=== PATIENT | female | born 1955 | race Caucasian/White ===

== ENCOUNTER 2016-09-06 08:29 | Observation (INO) | payer SELFPAY ==
--- NOTE | ~2016-09-06 | HP ---
History And Physical [place] [id number] [facility] [place]. [address] NAME: NGOZI SCHERER : 55 STATUS : DIS Annabella PAT#: [id number] AGE: 61 ADM/REG DATE : 09/06/16 MR#: [id number] REPORT SERV DATE: 11/10/16 DICTATED BY: NATIVIDAD LOVING DATE: 09/06/16 REPORT STATUS : Draft TRANSCRIBED BY: MODEze DATE: 09/06/16 DATE OF ADMISSION: 09/06/2016 PRIMARY CARE PROVIDER: [facility]. HAND RUG BRAIDER: Previously Dr. Rakesh Machuca. PRODUCTION MACHINE SHOP SUPERVISOR: Dr. Delmy Pabon. CHIEF COMPLAINT: Chest pain with typical and atypical features. HISTORY OF PRESENT ILLNESS: This is a very pleasant 61-year-old white female with no known history of CAD, states that over the past two weeks, she has had episodic chest pain described as substernal in nature, that occurs randomly. She reports it is worse with exertion such as taking "a few steps" it becomes "sharp." She describes associated shortness of breath, nausea, diaphoresis, cold clammy sensation, and dizziness. Denies any belching. At its most intense, she rates the chest pain a 9/10. At the time of interview in the [facility], she is pain free. She states the episodes come and go, and are also described as "pulling on my chest." She denies any personal history of myocardial infarction, stroke, DVT, or pulmonary embolus. The patient denies any recent fever or chills, no palpitations, no syncopal episodes. Denies PND or orthopnea. Of note, the patient has been followed by Dr. Rakesh Machuca in the past, reportedly had an arteriogram done at [facility] in 2008, which was negative per the patient's report. She was followed by Dr. Machuca for reportedly atrial fibrillation, on atenolol and low-dose aspirin. PAST MEDICAL HISTORY: 1. Reports history of PAF, on beta-jos and aspirin. 2. IDDM. 3. Cholesterol per PCP and reportedly "fine.". 4. Depression. 5. Fibromyalgia. 6. Asthma. 7. Remote tobacco abuse. 8. Positive family history for early CAD. PAST SURGICAL HISTORY: Cholecystectomy and hemorrhoidectomy. SOCIAL HISTORY: She is with one daughter. 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 Currently unemployed, does not have an exercise routine. Quit smoking 30 years ago, prior to that was one-pack per day for 15 years. Denies alcohol or illicits. FAMILY HISTORY: Father at 67 of a heart attack. Mother with CAD and stents in her 60s, History And Physical [address] [id number] NAME: NGOZI SCHERER : 55 STATUS : DIS Annabella PAT#: [id number] AGE: 61 ADM/REG DATE : 09/06/16 MR#: [id number] REPORT SERV DATE: 11/10/16 DICTATED BY: NATIVIDAD LOVING DATE: 09/06/16 REPORT STATUS : Draft TRANSCRIBED BY: FREDIS DATE: 09/06/16 at 72. Sister with a "silent [place]," alive at 64. REVIEW OF SYSTEMS: A 14-point review of systems was performed, significant for HPI including home blood sugars of 80 to 400. Recalls most recent hemoglobin A1c of 12, records indicate 13. Otherwise a complete review of systems was obtained and negative. ALLERGIES: SULFA, NAUSEA AND VOMITING; RELAFEN, NAUSEA AND VOMITING, HEART ATTACK OR "FEELS LIKE I AM HAVING A HEART ATTACK;" PHENERGAN, SLEEPINESS AND NAUSEA. MEDICATIONS: Home medicines; aspirin 81 mg daily; atenolol 100 mg daily, last dose on 07/05/2016 at 1700 hours; Prozac 40 mg daily; hydrocodone 10/325 every 6 hours p.r.n.; NovoLog sliding scale; Levemir 15 units twice daily; and magnesium daily. PHYSICAL EXAMINATION: BLOOD PRESSURE: 129/74, PULSE: 58, RESPIRATORY RATE: 16, TEMPERATURE: 97.6, O2 saturation 99% on room air. HEIGHT: 5 feet 3 inches, WEIGHT: 130 pounds. BMI of 23. GENERAL: Cooperative, in no apparent distress. HEENT: Pupils 2 mm, sclera nonicteric. Nares patent. Moist mucous membranes. No xanthelasma. NECK: Trachea midline, no thyromegaly. No JVD. No bruits. LYMPH: No cervical lymphadenopathy. No supraclavicular lymphadenopathy. RESPIRATORY: Unlabored respirations. Breath sounds clear bilaterally to posterior auscultation. No wheezes or rhonchi. CARDIOVASCULAR: Trace bilateral ankle edema. ABDOMEN: Soft, nontender, nondistended, normal bowel sounds auscultated throughout. No organomegaly. SKIN: Warm, dry extremities. No pallor, or cyanosis. PSYCHIATRIC: Appropriate affect. Alert, oriented x3. LABORATORY DATA: Troponin is less than 0.02, second pending. Potassium 4.2, BUN 18, creatinine 0.63, glucose 85, and magnesium 2.2. WBC of 8.6, hemoglobin 14.6, hematocrit 41.2, and platelet count 332,000. EKG; sinus rhythm with occasional PVCs. Echo 08/2013: EF of 55%. MPI 04/2014: No ischemia. A cath [place] [address] Machuca at [facility]; negative per the patient's report. ASSESSMENT AND PLAN: 1. Chest pain with typical and atypical features. The patient will be observed in the CP[facility] overnight to rule out myocardial infarction with serial enzymes and serial EKGs. Beta-jos will remain on hold. N.p.o. after midnight for MPI in the morning. Resume beta-jos after stress test. The patient will be discharged home if low risk, no ischemia. If anything suggestive of ischemia, Cardiology referral will be initiated. Otherwise, the patient will be asked to follow up with her PCP in one to History And Physical [address] [id number] NAME: NGOZI SCHERER : 55 STATUS : DIS Annabella PAT#: [id number] AGE: 61 ADM/REG DATE : 09/06/16 MR#: [id number] REPORT SERV DATE: 11/10/16 DICTATED BY: NATIVIDAD LOVING DATE: 09/06/16 REPORT STATUS : Draft TRANSCRIBED BY: FREDIS DATE: 09/06/16 two weeks with all studies being sent to that office. 2. Paroxysmal atrial fibrillation per report, monitor rhythm, hold beta-jos. Resume beta-jos after MPI. 3. Insulin-dependent diabetes mellitus, check a hemoglobin A1c level 1 sliding scale correction. Diet choice was discussed. GAVIN/FREDIS Natividad Loving, MSN, DIGITAL COMMENTATOR- / [id number]
[~2016-09-06 08:29] MED LIST: ADVAIR; AFRIN15 NAS; ASAB PO; ATEN100 PO; ATEN50 PO; ATENOLOL; ATV1 PO; CIP5 PO; COMBIVENT RESPIM4 GM INH; INHALER PO; INSNOVN SC; LANTUS SC; LEVEMIR SC; LEVOTHYROXIN25 MCG PO; LORTAB10 PO; MAGNESIUM PO; MAGOX4 PO; MONODOX100 MG PO; MULTIVIT/MIN PO; NEUR300 PO; NEXIUM; NORCO1 TAB PO; NOVOLOG SC; NOVOLOG SLIDING; NOVOPEN SC; P10 PO; PR25 PO; PROTONIX PO; PROVHFA INH; PROZAC; PROZAC40 MG PO; SINGULAIR1 PO; STOOL SOFTNER OTC PO; T PO; TAGAMET 200 MG200 MG PO; ZYRTEC ALLGY10 MG PO; [UNRECOGNIZED DRUG - OTHER] PO; [UNRECOGNIZED DRUG - REMARK]
[2016-09-06 08:32] LABS: BASOPHILS 0.2 %; BASOPHILS ABSOLUTE 0.02 10/3/uL (0.0-0.16); EOSINOPHILS 1.5 %; EOSINOPHILS ABSOLUTE 0.13 10/3/uL (0.0-0.53); ER CBC TAT 0 Hrs 05 Mins; HEMATOCRIT 41.2 % (36.0-48.0); HEMOGLOBIN 14.6 g/dL (12.0-16.0); IMMATURE GRANULOCYTES 0.1 %; IMMATURE GRANULOCYTES ABSOLUTE 0.01 10/3/uL (0.0-0.11); LYMPHOCYTES 29.8 %; LYMPHOCYTES ABSOLUTE 2.55 10/3/uL (0.67-4.30); MANUAL DIFF NO %; MEAN CORPUS HGB CONC 35.4 g/dL (32.0-36.0); MEAN CORPUSCULAR HEMOGLOB 31.5 pg (26.0-34.0); MEAN CORPUSCULAR VOLUME 88.8 fL (80-100); MEAN PLATELET VOLUME 10.1 fL (9.2-13.0); MONOCYTES 7.7 %; MONOCYTES ABSOLUTE 0.66 10/3/uL (0.21-1.20); NEUTROPHILS 60.7 %; PLATELET COUNT 332 10/3/uL (150-400); RBC DISTRIBUTION WIDTH 12.5 % (12.0-16.0); RED CELL COUNT 4.64 10/6/uL (4.0-5.6); WHITE BLOOD CELLS 8.6 10/3/uL (4.5-10.5)
[2016-09-06 08:38] LABS: PARTIAL THROMBO TIME 26.5 SEC (22.5-37.2); PROTIME (NOT ORD) 13.4 SEC (12.0-14.5)
[2016-09-06 08:53] LABS: BUN (BLOOD UREA NITROGEN) 18 MG/DL (6-23); CALCIUM, SERUM 9.2 MG/DL (8.5-10.4); CHEST PAIN PROFILE TAT 0 Hrs 26 Mins; CHLORIDE, SERUM 99 MMOL/L (96-112); CO2 (CARBON DIOXIDE) 32 MMOL/L (24-34); CREATININE 0.63 MG/DL (0.55-1.02); GFR AFRICAN AMERICAN 112 ML/MIN (>=60); GFR NON AFRICAN AMERICAN 97 ML/MIN (>=60); POTASSIUM, SERUM 4.2 MMOL/L (3.5-5.3); SODIUM, SERUM 140 MMOL/L (135-148); TROPONIN I <0.02 NG/ML (<0.05)
[2016-09-06 08:54] LABS: GLUCOSE, SERUM 85 MG/DL (60-99)
[2016-09-06] MEDS ORDERED: ATEN100 PO (10:26)
[2016-09-06] MEDS ORDERED: LEVEMFLXPN SC (10:27)
[2016-09-06] MEDS ORDERED: PROZAC40 MG PO (10:28)
[2016-09-06] MEDS ORDERED: NORCO1 TAB PO (10:28)
[2016-09-06] MEDS ORDERED: ASAB PO (10:28)
[2016-09-06] MEDS ORDERED: NOVOLOG SC (10:28)
[2016-09-06] MEDS ORDERED: MAGNESIUM PO (10:29)
== END 2016-09-07 17:12 | disposition home or self-care (01) ==
LOC: ER 08:29 → CDU1 09:44
PROVIDERS: Nurse Practitioner
DX: R07.89 Other chest pain (principal); I48.0 Paroxysmal atrial fibrillation; E11.9 Type 2 diabetes mellitus without complications; M79.7 Fibromyalgia; J44.9 Chronic obstructive pulmonary disease, unspecified; E78.00 Pure hypercholesterolemia, unspecified; M06.9 Rheumatoid arthritis, unspecified; E03.9 Hypothyroidism, unspecified; F41.9 Anxiety disorder, unspecified; F32.9 Major depressive disorder, single episode, unspecified; Z79.4 Long term (current) use of insulin; Z98.51 Tubal ligation status; Z88.8 Allergy status to other drugs, medicaments and biological substances; Z87.01 Personal history of pneumonia (recurrent); Z88.2 Allergy status to sulfonamides; Z90.49 Acquired absence of other specified parts of digestive tract
CPT/HCPCS: 71010; 78452; 80048; 82962; 83036; 83735; 84484; 85025; 85610; 85730; 90686; 93005; 93017; 96374; 96375; 96376; 99285; A9270-GY; A9502; G0008; G0378; J0153; J0360; J2405

== ENCOUNTER 2016-11-03 06:15 | Emergency (ER) | payer SELFPAY ==
[2016-11-03 05:28] LABS: ASCORBIC ACID (UR NOT ORDER) NEG (NEG); BILIRUBIN, URINE NEGATIVE (NEG); ER URINALYSIS TAT 0 Hrs 00 Mins; KETONE, URINE TRACE MG/DL (NEG); LEUKOCYTE ESTERASE(NOT OR TRACE (NEG); NITRITE (URINE) NEG (NEG); WBC (NOT ORDERED) (RFLEX) 4 (0-5)
[2016-11-03 05:34] LABS: BASOPHILS 0.1 %; BASOPHILS ABSOLUTE 0.01 10/3/uL (0.0-0.16); EOSINOPHILS 0.5 %; EOSINOPHILS ABSOLUTE 0.08 10/3/uL (0.0-0.53); ER CBC TAT 0 Hrs 10 Mins; HEMATOCRIT 39.1 % (36.0-48.0); HEMOGLOBIN 13.7 g/dL (12.0-16.0); IMMATURE GRANULOCYTES 0.3 %; IMMATURE GRANULOCYTES ABSOLUTE 0.04 10/3/uL (0.0-0.11); LYMPHOCYTES 16.8 %; LYMPHOCYTES ABSOLUTE 2.52 10/3/uL (0.67-4.30); MANUAL DIFF NO %; MEAN CORPUSCULAR HEMOGLOB 30.9 pg (26.0-34.0); MEAN CORPUSCULAR VOLUME 88.3 fL (80-100); MEAN PLATELET VOLUME 10.1 fL (9.2-13.0); MONOCYTES 11.5 %; MONOCYTES ABSOLUTE 1.73 10/3/uL (0.21-1.20); NEUTROPHILS 70.8 %; NEUTROPHILS ABSOLUTE 10.65 10/3/uL (2.02-8.40); PLATELET COUNT 309 10/3/uL (150-400); RBC DISTRIBUTION WIDTH 12.6 % (12.0-16.0); RED CELL COUNT 4.43 10/6/uL (4.0-5.6)
[2016-11-03 05:56] LABS: A/G RATIO 0.8 (0.7-1.9); ALBUMIN 3.3 G/DL (3.5-5.0); BUN (BLOOD UREA NITROGEN) 19 MG/DL (6-23); CALCIUM, SERUM 9.1 MG/DL (8.5-10.4); CHLORIDE, SERUM 98 MMOL/L (96-112); CO2 (CARBON DIOXIDE) 31 MMOL/L (24-34); CREATININE 0.63 MG/DL (0.55-1.02); GFR AFRICAN AMERICAN 112 ML/MIN (>=60); GFR NON AFRICAN AMERICAN 97 ML/MIN (>=60); GLOBULIN 4.3 G/DL (2.5-4.1); SGOT(AST) 8 U/L (5-40); SGPT(ALT) 14 U/L (5-65); SODIUM, SERUM 136 MMOL/L (135-148); TOTAL BILIRUBIN 1.2 MG/DL (0-1.2); TOTAL PROTEIN 7.6 G/DL (6.0-8.5)
[2016-11-03 05:59] LABS: ALKALINE PHOSPHATASE 92 U/L (45-117); GLUCOSE, SERUM 147 MG/DL (60-99)
[~2016-11-03 06:15] MED LIST changes: +LEVEMFLXPN SC
== END 2016-11-03 06:48 | disposition home or self-care (01) ==
LOC: ER 06:15
PROVIDERS: Emergency Medicine
DX: B34.9 Viral infection, unspecified (principal); J45.909 Unspecified asthma, uncomplicated; I48.91 Unspecified atrial fibrillation; F32.9 Major depressive disorder, single episode, unspecified; E11.9 Type 2 diabetes mellitus without complications; Z87.891 Personal history of nicotine dependence; Z88.2 Allergy status to sulfonamides; Z88.8 Allergy status to other drugs, medicaments and biological substances; Z79.4 Long term (current) use of insulin; Z79.82 Long term (current) use of aspirin; Z79.899 Other long term (current) drug therapy
CPT/HCPCS: 71010; 80053; 81001; 85025; 96374; 99284; J2405